=== PATIENT | female | born 1960 | race Caucasian/White ===

== ENCOUNTER 2021-05-01 15:36 | Outpatient (REF) | payer OTHER, SELFPAY ==
--- NOTE | ~2021-05-01 | CT_ITS ---
EXAMINATION: CT HEAD WITHOUT CONTRAST CLINICAL INFORMATION: Seizures. Migraine. COMPARISON: None TECHNIQUE: Contiguous axial imaging was performed from the skull base to vertex without intravenous administration of contrast. This CT examination was performed using dose optimization techniques as appropriate, variously including the following: *Automated exposure control *Adjustment of mA and/or kV according to patient size (this includes techniques or standardized protocols for targeted exams where dose is matched to indication/reason for exam; i.e. extremities or head) *Use of iterative reconstruction technique DLP: 784 mGy-cm FINDINGS: There is no evidence of acute intracranial hemorrhage or territorial infarction. No abnormal mass effect or midline shift is seen. Marie to white matter differentiation is well preserved. No extra-axial fluid collections are identified. The ventricles are normal in size. There is no abnormal attenuation within the brain parenchyma. The osseous structures and soft tissues are normal. The mastoid air cells and visualized portions of the paranasal sinuses are well aerated. CT/CT head/brain wo con IMPRESSION: Unremarkable exam.
== END 2021-05-01 15:37 | disposition home or self-care (01) ==
LOC: HO.CT 15:36
PROVIDERS: Visit Provider Psychiatry & Neurology Neurology
DX: G43.909 Migraine, unspecified, not intractable, without status migrainosus (principal); R56.9 Unspecified convulsions
CPT/HCPCS: 70450

== ENCOUNTER 2021-06-09 12:56 | Outpatient (REF) | payer OTHER, SELFPAY ==
--- NOTE | 2021-06-09 | EEG_ITS ---
The waking background activity consists of a well-defined moderate voltage 9 to 10 hertz posterior alpha frequency, intermixed anteriorly with beta frequencies. Intermittent bifrontal slowing is seen and a few episodes of sharp and slow discharges seen from the right posterior quadrants particularly on page 2532. Some brief bursts of sharp theta discharges seen predominantly over the T5 area on pages 8639 and 8688. Drowsiness is characterized by diffuse theta slowing. During sleep, symmetrical frontal central sleep spindles, and vertex sharp transients developed over both hemispheres. Arousals are unremarkable. Frequent muscle artifact from clenching and chewing are seen. No diary was returned. IMPRESSION: This 24-hour EEG is considered borderline abnormal due to occasional sharp transients from the right posterior quadrant and some sharp configuration theta from the left temporal region. This may suggest some element of localized cerebral irritability. None of these findings have developed well enough to be diagnostic for seizure disorder. The patient currently remained asymptomatic and did not return a diary. MD ERIN Barahona/MARII / [phone]
== END 2021-06-09 12:57 | disposition home or self-care (01) ==
LOC: HO.NEURO 12:56
PROVIDERS: Visit Provider Psychiatry & Neurology Neurology
DX: R56.9 Unspecified convulsions (principal)
CPT/HCPCS: 95708

== ENCOUNTER 2022-08-31 10:14 | Outpatient (REF) | payer OTHER, SELFPAY ==
--- NOTE | 2022-09-01 09:20 | MHC.AU.MED ---
Medical Clearance for Hearing Instrumentation Date: 08/31/22 Patient Name: Elvira Vazquez Date of : 1960 Primary Care Provider: MICHELLE Goff We have seen your patient on 08/31/22 and have determined that they are a candidate for amplification (See accompanying report). Specifically, they would benefit from: Hearing aid use in both ears There is a statute that addresses Medical Evaluation Requirements prior to fitting a patient with a hearing aid. According to [place] statute 265 CMR:6.03(1), (a) General. Except as provided in 265 CMR 6.03(1)(b), a hearing consultant shall not sell a hearing aid unless the prospective user has presented to the hearing consultant a written statement signed by a licensed physician that states that the patient's hearing loss has been medically evaluated and the patient may be considered a candidate for a hearing aid. The medical evaluation must have taken place within the preceding six months. Please note: Due to the [place] Statute referenced above, we cannot accept a signature other than that of a licensed physician. CONSUMER MARKETING SPECIALIST and PA signatures cannot be accepted. I am in agreement with the above recommendation. There is no medical contraindication for hearing instrumentation. Physician Signature Date Physician Name (Printed)
--- NOTE | 2022-09-01 11:18 | MHC.AU.HAS ---
Hearing Aid Evaluation Date of Visit: 08/31/22 Historical Information: Description of Hearing: Moderate to severe sensorineural hearing loss, bilaterally Current personal amplification information, if applicable: Reportedly previous hearing aids user fit at [facility] over 10 years ago described at [id number]-ear hearing aids, which have since been misplaced. Hearing Aid Prescription: Based on the individual?s shared listening needs, communication environments, dexterity, desire for connectivity, and personal preferences, the following prescription for amplification has been made: Right ear: Swimming Instructor: Phonak Model: Audeo P70-R Battery Size: Rechargeable Color: P6 - Silver Marie Supervisor Roller Printing: 1P Tubing: Type of Dome: Type of Mold: Acrylic c-shell with canal lock Left ear: Left ear prescription to be same as Right Hearing Aid above: Swimming Instructor: Phonak Model: Audeo P70-R Battery Size: Rechargeable Color: P6 - Silver marie Supervisor Roller Printing: 1P Tubing: Type of Dome: Type of Mold: Acrylic c-shell with canal lock Plan of Care: Patient wishes to purchase hearing aids as prescribed Action Taken/Action Needed: Earmold Impressions Taken Medical Clearance to be requested from PCP/ENT Hearing Instrument Fitting to be scheduled when materials arrive Primary Diagnosis: H90.3 Bilateral Sensorineural Hearing Loss Signature: Provider: Avinash Chow, [facility]
== END 2022-08-31 10:15 | disposition home or self-care (01) ==
LOC: HO.SH 10:14
PROVIDERS: Visit Provider Physician Assistant Medical
DX: Z01.118 Encounter for examination of ears and hearing with other abnormal findings (principal); H90.3 Sensorineural hearing loss, bilateral
CPT/HCPCS: 92557; 92591

== ENCOUNTER 2022-09-29 14:20 | Outpatient (REF) | payer OTHER, SELFPAY ==
--- NOTE | 2022-09-29 15:21 | MHC.AU.HFA ---
Hearing Instrument Fitting- Adult- Binaural Date of Visit: 09/29/22 Hearing Instruments Dispensed: Right Ear: Phonak Audeo P70-R SN: [id number] Color: Silver Marie Repair Warranty: 12/11/2025 Loss and Damage Warranty: 12/11/2025 Service Plan: 09/29/2023 Battery Size: Rechargeable Night Clerk: 1P Type of Mold: Acrylic c-shell with canal lock [id number] Warranty: 12/13/2022 Type of Wax Guard: CeruStop Left Ear: Phonak Audeo P70-R SN: [id number] Color: Silver Marie Repair Warranty: 12/11/2025 Loss and Damage Warranty: 12/11/2025 Service Plan: 09/29/2023 Battery Size: Rechargeable Night Clerk: 1P Type of Mold: Acrylic c-shell with canal lock SN: [id number] Warranty: 12/13/2022 Type of Wax Guard: CeruStop w/Cshell Summary of Fitting: Performed feedback material control manager and real ear measurements. Comfortable at real ear settings. Discussed care, use, and rechargeability, including changing wax guard, cleaning, and manually turning off/on. Elvira is reportedly a previous hearing aid user and is happy to have amplification again. Explained the importance of daily, consistent use and the acclimatization period. Did not pair to cell phone at this time. Recommendations: A hearing instrument follow-up was scheduled. Diagnosis Code(s): Primary Diagnosis: H90.3 Bilateral Sensorineural Hearing Loss Signature: Provider: Avinash Chow, [facility]
== END 2022-09-29 14:21 | disposition home or self-care (01) ==
LOC: HO.HAP 14:20
PROVIDERS: Visit Provider Physician Assistant Medical
DX: Z46.1 Encounter for fitting and adjustment of hearing aid (principal); H90.3 Sensorineural hearing loss, bilateral
CPT/HCPCS: V5011; V5020; V5160; V5261; V5264

== ENCOUNTER → 2023-04-06 10:15 | Outpatient (BNVA) | payer OTHER, SELFPAY | PROVIDERS: PCP Internal Medicine; Visit Provider Internal Medicine | DX: K62.5 Hemorrhage of anus and rectum (principal); R19.4 Change in bowel habit; R10.9 Unspecified abdominal pain; R13.10 Dysphagia, unspecified | CPT/HCPCS: 99202 ==

== ENCOUNTER 2023-05-18 11:02 | Outpatient (REF) | payer OTHER, SELFPAY ==
[2023-05-18 12:58] LABS: Hemoglobin 13.4 g/dl (12.0-16.0); Mean Corpuscular HGB Conc 35.3 g/dl (31.0-35.0); Mean Corpuscular Volume 102.2 fL (80.0-98.0); Mean Platelet Volume 9.6 fL (9.4-12.3); Platelet Count 231 X10*3/uL (160-400); Red Blood Count 3.72 X10*6/uL (4.20-5.50); Red Cell Distribution Width 13.8 % (11.0-16.0); White Blood Count 6.9 X10*3/uL (4.8-10.8)
[2023-05-18 14:32] LABS: Alanine Aminotransferase 22 U/L (0-31); Albumin Level 4.6 g/dL (3.5-5.0); Alkaline Phosphatase 155 U/L (39-117); Anion Gap 17 (12-20); Aspartate Amino Transferase 20 U/L (5-31); Bilirubin Total 0.3 mg/dL (0.0-1.0); Blood Urea Nitrogen 11 mg/dL (9-16); C Reactive Protein 2.08 mg/dL (< or = 0.50); Calcium 9.7 mg/dL (8.4-10.2); Carbon Dioxide 16 mmol/L (22-29); Chloride 107 mmol/L (96-108); Estimated Glomerular Filt Rate > 60; Glucose Random 175 mg/dL (60-115); Potassium 4.3 mmol/L (3.3-5.1); Sodium 136 mmol/L (135-145); Total Protein 7.6 g/dL (6.5-8.0)
[2023-05-18 14:35] LABS: TSH reflex Free T4 0.54 uIU/mL (0.32-4.0); Vitamin D 25-OH Total 16.7 ng/mL (>30)
[2023-05-20 18:53] LABS: Immunoglobulin A 71 mg/dL (70-320)
[2023-05-23 07:13] LABS: Transglutaminase IgA <1.0 U/mL
[2023-05-25 22:04] LABS: Calprotectin, Fecal 19 mcg/g
== END 2023-05-18 11:03 | disposition home or self-care (01) ==
LOC: HO.LAB 11:02
PROVIDERS: PCP Internal Medicine; Visit Provider Internal Medicine
DX: R19.4 Change in bowel habit (principal); K62.5 Hemorrhage of anus and rectum
CPT/HCPCS: 36415; 80053; 82306; 82784; 83993; 84443; 85027; 86140; 86364

== ENCOUNTER 2023-05-27 07:49 | Outpatient (REF) | payer OTHER, SELFPAY ==
--- NOTE | ~2023-05-27 | CT_ITS ---
EXAMINATION: CT ABDOMEN AND PELVIS WITH CONTRAST CLINICAL INFORMATION: Unspecified abdominal pain. COMPARISON: None available. TECHNIQUE: Multidetector volumetric images were obtained from the superior aspect of the liver through the pubic symphysis following administration 85 mL of Omnipaque 350 intravenous contrast. Sagittal and coronal reformatted images were obtained on the technologist's workstation. Oral contrast: No. This CT examination was performed using dose optimization techniques as appropriate, variously including the following: *Automated exposure control *Adjustment of mA and/or kV according to patient size (this includes techniques or standardized protocols for targeted exams where dose is matched to indication/reason for exam; i.e. extremities or head) *Use of iterative reconstruction technique DLP: 557 mGy-cm FINDINGS: LUNG BASES: The visualized lung bases are unremarkable. LIVER, GALLBLADDER, AND BILIARY TREE: The liver is normal in size, shape, and attenuation. No focal hepatic lesion or biliary ductal dilatation is present. The gallbladder is not visualized. PANCREAS: Unremarkable. SPLEEN: The spleen is unremarkable. Small accessory splenule at the hilum. ADRENAL GLANDS: Unremarkable. KIDNEYS AND URETERS: The kidneys are normal in size, shape, and attenuation. There is a 4 mm radiopaque calculi lower pole calyx left kidney. There is no caliectasis. No additional radiopaque calculi seen. No perinephric stranding. BLADDER: Unremarkable. GASTROINTESTINAL TRACT: There is scattered stool and gas seen throughout the colon without distention. The small bowel loops are normal caliber. There is a ring-shaped calcification along the posterolateral base of cecum measuring 1 cm. The appendix is not seen with certainty. The ileocecal junction is normal. The stomach is nondistended. ABDOMINAL WALL: No significant hernia is appreciated. LYMPH NODES: Normal. VASCULAR: Unremarkable. PELVIC VISCERA: Unremarkable. OSSEOUS STRUCTURES: No aggressive lytic or sclerotic process seen. There are degenerative disc changes with vacuum disc phenomena L4-L5 and L5-S1 disc levels. The paravertebral soft tissues are normal. CT/CT abdomen pelvis w IV con IMPRESSION: 1. No acute intra-abdominal process seen. 2. Nonobstructive 4 mm radiopaque calculi lower pole calyx left kidney. 3. Mild constipation. Ring-shaped calcification intramural along the base of the cecum, question previous appendectomy changes, less stagnant oral contrast in diverticuli. Fleischner guidelines were followed.
[2023-05-27] MEDS: iohexoL 350 MG/ML 100 ML INFUS..BTL IV (08:24)
== END 2023-05-27 07:50 | disposition home or self-care (01) ==
LOC: HO.CT 07:49
PROVIDERS: PCP Internal Medicine; Visit Provider Internal Medicine
DX: R10.9 Unspecified abdominal pain (principal)
CPT/HCPCS: 74177; Q9967

== ENCOUNTER 2023-06-14 10:10 | Outpatient (REF) | payer OTHER, SELFPAY ==
[2023-06-14 13:21] LABS: Blood Urea Nitrogen 10 mg/dL (9-16); Calcium 9.9 mg/dL (8.4-10.2); Estimated Glomerular Filt Rate > 60; Phosphorus 2.2 mg/dL (2.7-4.5)
[2023-06-14 13:48] LABS: Folate 5.1 ng/mL (> or = 4.0); Vitamin B12 410 pg/mL (200-900)
[2023-06-17 22:28] LABS: Calcium (PTHI) 10.2 mg/dL (8.6-10.4); PTHI 27 pg/mL (16-77)
[2023-06-23 05:28] LABS: Alk.Phos Iso. Macrohepatic 0 % (<=0); Alk.Phos Isoenzymes Bone 59 % (28-66); Alk.Phos Isoenzymes Intest 0 % (1-24); Alk.Phos Isoenzymes Liver 41 % (25-69); Alk.Phos Isoenzymes Placental 0 % (<=0); Alk.Phos Isoenzymes Total 126 U/L (37-153)
[2023-06-24 09:06] LABS: Phosphatidylethanol 16:0-18:1 NEGATIVE; Phosphatidylethanol 16:0-18:2 NEGATIVE
== END 2023-06-14 10:11 | disposition home or self-care (01) ==
LOC: HO.LAB 10:10
PROVIDERS: PCP Internal Medicine; Visit Provider Internal Medicine
DX: R10.9 Unspecified abdominal pain (principal); D53.9 Nutritional anemia, unspecified; R74.8 Abnormal levels of other serum enzymes; D75.89 Other specified diseases of blood and blood-forming organs; R13.10 Dysphagia, unspecified; K52.832 Lymphocytic colitis
CPT/HCPCS: 36415; 80321; 82310; 82565; 82607; 82746; 83970; 84080; 84100; 84520; 99212

== ENCOUNTER 2023-06-14 10:10 | Outpatient (AMB) | payer OTHER, SELFPAY ==
--- NOTE | 2023-06-14 10:18 | A.OFFVIS_ITS ---
Intake Vital Signs 06/14/23 10:20 Height 5 ft 1 in Weight 196 lb 3.382 oz BMI 37.1 Blood Pressure Location Lt brachial Position Sitting Intake Visit Reasons: f/u labs, CT scan Intake Note: Elvira presents in the office as a follow up to her CT scan and labs. CC: She states that she is having pains in her stomach and lower back. Every time she eats she will have contraction like feelings and nausea to the point where she can throw up. Geotechnical Engineer Required: No Allergies bee pollen [BEE STINGS] Allergy (Severe, Verified 06/14/23 10:20) Anaphylaxis lorazepam [From ATIVAN] Allergy (Severe, Verified 06/14/23 10:20) anaphylaxis, nausea penicillin V Allergy (Severe, Verified 06/14/23 10:20) anaphylaxis Sulfa (Sulfonamide Antibiotics) [SULFA (SULFONAMIDE ANTIBIOTICS)] Allergy (Severe, Verified 06/14/23 10:20) anaphylaxis, nausea ampicillin Allergy (Unknown, Verified 06/14/23 10:20) Swelling Penicillins [PCN] Allergy (Unknown, Verified 06/14/23 10:20) Rash gluten [GLUTEN] Adverse Reaction (Severe, Verified 06/14/23 10:20) Intolerance HPI HPI Comments History of Present Illness Details 62y.o F with PMH of SLE, C Diff, sensorineural hearing loss who is following up for lower abdominal pain and difficulty swallowin04/06/23: Pt reports that for the past few months she has been noticing increased lower abdominal pain which is more severe than labor pain anytime she has to defecate and when she does have a BM she notices hiren bright red blood. She has seen rectal bleeding even without passing a BM. Has also been noticing increasing frequency of diarrhea with this. Secondly, she has also been having difficulty swallowing joe solids. Has a sensation of food getting stuck mid chest. Appetite is unchanged. HAs not been losing any weight. Reports last EGD and colo done almost 2 years ago at [facility]. From her description appears had an esophageal dilation at that time. Reports a couple fo polyps in the colon but otherwise normal. 06/14/23: Records from [facility] (Dr Pierre) reviewed. Underwent EGD with dil - report N/A. Also had colonoscopy at the same time. x2 tubular adenoma and lymphocytic colitis on path. Reports continued chest pressure and cramping with certain textures of food. Thinks may need esophageal dilation again. Abd pain and diarrhea also persistent. Has not been taking any diarrheals for this. Has known hx of lymphocytic colitis but does not recall taking budesonide (although was Rxed x2 by previous GI provider). Labs and CT findings reveiwed with the pt and are reassuring. She was wondering about pancreatic cyst and was clarified that no panc cyst was noted on this scan or the previous scans. Had small fatty deposition/lipoma noted in pancreas in 2020. [facility] Medical History Abnormal breast tissue Anxiety Chronic gastritis Episodic tension-type headache Esophagitis Fibromyalgia Gastroesophageal reflux disease Immunoglobulin G deficiency Posttraumatic stress disorder Seizure Surgical History H/O left knee surgery History of cholecystectomy History of colonoscopy Hx of hysterectomy Family History Paternal Grandmother Leukemia Sister Cervical cancer Sister Uterine cancer Maternal Aunt Stomach cancer Paternal Aunt Breast cancer Social History Household Members: None Housing: Apartment Are you a primary patient care coordinator to a significant other at home: No Do you presently have visiting nurse or other home services: No Patient Tobacco Use Status: Former Tobacco user Tobacco use type: Cigarette service: No Current occupational status: disabled Review of Systems Const All systems reviewed & are unremarkable except as noted in HPI and below Physical Exam Vital Signs: BMI result Body Mass Index 37.1 Gen appear: NAD HEENT: nonicteric, no cervical lymphadenopathy Chest: CTA CVS: Regular S1/S2 Abd: soft, nontender, nondistended, bowel sounds + Rectal: Defered. (Prevous visit: Vesna Riddle MA present as optical effects layout person. Small ext hemorrhoids, small internal hemorrhoids, no stool or blood on gloved finger) Ext: no peripheral edema Neuro: A/Ox3, noted to move all extremities spontaneously Psych: interacting appropriately Assessment & Plan Assessment & Plan (1) Abdominal pain: Code(s): R10.9 - Unspecified abdominal pain (2) Dysphagia: Code(s): R13.10 - Dysphagia, unspecified (3) Lymphocytic colitis: Code(s): K52.832 - Lymphocytic colitis Plan 1. Dysphagia: Has hx of esophageal dilation. However since we do not have a copy of the procedure note, unclear if has stricture vs ring/web. Pt missed her barium swallow appt in April. Plan: - Obtain EGD note from [facility] - BArium swallow re-scheduled - EGD with dil 2. Lymphocytic colitis: Based on bx from 2020 and likely reason for ongoing watery diarrhea. Plan: - Trial of loperamide x 4 weeks - If minimal response, will Rx PO budesonide Follow up after EGD Orders: Orders Vitamin B12 and Folate Today D75.89 - Other specified diseases of blood and blood-forming organs Medications: New loperamide (Anti-Diarrheal (loperamide)) 2 mg orally in the AM and then after every loose stools to a max of 16mg/day PRN; 60 caps 0RF loose stool Coding Level of Care Code Est Pt Level 4 (92963) Diagnoses Abdominal pain R10.9 Dysphagia R13.10 Lymphocytic colitis K52.832
[2023-06-14 10:20] VITALS: BMI 37.1
== END 2023-06-14 11:44 | disposition home or self-care (01) ==
PROVIDERS: PCP Internal Medicine; Visit Provider Internal Medicine
DX: R10.9 Unspecified abdominal pain (principal); R13.10 Dysphagia, unspecified; K52.832 Lymphocytic colitis
CPT/HCPCS: 99214

== ENCOUNTER 2023-06-30 09:11 | Outpatient (REF) | payer OTHER, SELFPAY ==
--- NOTE | ~2023-06-30 | FL_ITS ---
EXAMINATION: FL BARIUM SWALLOW CLINICAL INFORMATION: 62-year-old female complaining of episodic dysphasia, globus sensation, GERD. COMPARISON: No relevant prior available for comparison. TECHNIQUE: Barium swallow examination is performed using standard air-contrast technique fluoroscopic evaluation in addition to multiple fluoroscopic spot views. The patient is imaged both upright and prone and using both thick and thin sulfate along with effervescent granules. Fluoroscopy time: 3.1 minutes minutes DAP: 44.568 Gycm2 Images: 37 FINDINGS: On the sagittal images of the oropharynx and hypopharynx during swallow, normal oral and hypopharyngeal phases of swallowing noted with no evidence of cricopharyngeal achalasia, diverticulum, mass, or significant vallecular or piriform sinus pooling. Minimal transient laryngeal penetration was noted without gross aspiration, which cleared subsequently. Normal epiglottic movement and soft palate elevation. The esophagus has a normal caliber, and contour. No evidence of stricture, mass, or mucosal abnormality. Esophageal primary peristalsis was normal, however there was mild tertiary contractions which were minimally propulsive and mildly disordered. Episodic gastroesophageal reflux was noted to the level of the aortic arch. A small type I hiatus hernia was present, best seen on series 3, image 13. The stomach has a normal contour and fold pattern. No ulcerations, masses, or other abnormalities. The duodenal bulb, proximal duodenum, and imaged proximal small bowel appear normal. FL/FL barium swallow IMPRESSION: 1. Transient laryngeal penetration of thick barium only noted on one swallow. No gross subglottic aspiration evident. 2. Normal esophagus without stricture, mass, or mucosal abnormality. Mild presbyesophagus. 3. Episodic gastroesophageal reflux to the level of the aortic arch. 4. Small type I hiatus hernia. 5. Normal stomach, duodenal bulb, duodenal sweep, and proximal small bowel.
== END 2023-06-30 09:12 | disposition home or self-care (01) ==
LOC: HO.XRAY 09:11
PROVIDERS: PCP Internal Medicine; Visit Provider Internal Medicine
DX: R13.10 Dysphagia, unspecified (principal)
CPT/HCPCS: 74220; 74221

== ENCOUNTER → 2023-06-30 09:12 | Outpatient (BNV) | payer OTHER, SELFPAY | PROVIDERS: PCP Internal Medicine; Visit Provider Radiology Diagnostic Radiology | DX: K21.9 Gastro-esophageal reflux disease without esophagitis (principal) | CPT/HCPCS: 74221 ==

== ENCOUNTER 2025-03-13 15:16 | Outpatient (AMB) | payer OTHER, SELFPAY ==
--- NOTE | 2025-03-13 15:24 | MHC.OFFVIS ---
Vital Signs 03/13/25 15:25 Height 5 ft 1 in Weight 182 lb 15.739 oz BMI 34.6 BP 109/58 L Blood Pressure Location Lt brachial Position Sitting Pulse 90 Intake Visit Reasons: abd pain, rectal bleeding, colitis Intake Note: Elvira presents in the office as a follow up. CC: States she has been bleeding non stop since august. She wears pads and bleeds through them. Rectum comes out she states and it is very painful with blood clots. Flight Communications Officer Required: No Allergies bee pollen [BEE STINGS] Allergy (Severe, Verified 03/13/25 15:18) Anaphylaxis lorazepam [From ATIVAN] Allergy (Severe, Verified 03/13/25 15:18) anaphylaxis, nausea penicillin V Allergy (Severe, Verified 03/13/25 15:18) anaphylaxis Sulfa (Sulfonamide Antibiotics) [SULFA (SULFONAMIDE ANTIBIOTICS)] Allergy (Severe, Verified 03/13/25 15:18) anaphylaxis, nausea ampicillin Allergy (Unknown, Verified 03/13/25 15:18) Swelling Penicillins [PCN] Allergy (Unknown, Verified 03/13/25 15:18) Rash gluten [GLUTEN] Adverse Reaction (Severe, Verified 03/13/25 15:18) Intolerance HPI Comments Details: 62y.o F with PMH of SLE, C Diff, sensorineural hearing loss who is following up for lower abdominal pain and difficulty swallowin04/06/23: Pt reports that for the past few months she has been noticing increased lower abdominal pain which is more severe than labor pain anytime she has to defecate and when she does have a BM she notices hiren bright red blood. She has seen rectal bleeding even without passing a BM. Has also been noticing increasing frequency of diarrhea with this. Secondly, she has also been having difficulty swallowing joe solids. Has a sensation of food getting stuck mid chest. Appetite is unchanged. HAs not been losing any weight. Reports last EGD and colo done almost 2 years ago at [place]. From her description appears had an esophageal dilation at that time. Reports a couple fo polyps in the colon but otherwise normal. 06/14/23: Records from [facility] GI (Dr Pierre) reviewed. Underwent EGD with dil - report N/A. Also had colonoscopy at the same time. x2 tubular adenoma and lymphocytic colitis on path. Reports continued chest pressure and cramping with certain textures of food. Thinks may need esophageal dilation again. Abd pain and diarrhea also persistent. Has not been taking any diarrheals for this. Has known hx of lymphocytic colitis but does not recall taking budesonide (although was Rxed x2 by previous GI provider). Labs and CT findings reveiwed with the pt and are reassuring. She was wondering about pancreatic cyst and was clarified that no panc cyst was noted on this scan or the previous scans. Had small fatty deposition/lipoma noted in pancreas in 2020. 03/13/25: Pt was lost to follow up. Now returning primarily for intermittent rectal bleeding x 5 months. Symptoms started in august when she noticed blood after defecation. Blood ranges from a streak on TP to clots. No abd pain, cramping, chest pain or shortness of breath. 02/06/25 labs: WBC 8 Hb 14.6 Hct 41.4 plt 179 iron 85 iron sat 25% In the interim also reports multiple bulbous lesions on her hands and face and is being worked up for bullous pemphigoid. Pt also reports Cdiff infection x 3 which was treated as outpatient but no sx of abd pain or diarrhea at present. [facility] Medical History Abnormal breast tissue Anxiety Chronic gastritis Episodic tension-type headache Esophagitis Fibromyalgia Gastroesophageal reflux disease Immunoglobulin G deficiency Posttraumatic stress disorder Seizure Surgical History H/O left knee surgery History of cholecystectomy History of colonoscopy Hx of hysterectomy Family History Paternal Grandmother Leukemia Sister Cervical cancer Sister Uterine cancer Maternal Aunt Stomach cancer Paternal Aunt Breast cancer Social History Household Members: None Housing: Apartment Are you a primary post acute care registered nurse to a significant other at home: No Do you presently have visiting nurse or other home services: No Patient Tobacco Use Status: Former Tobacco user Tobacco use type: Cigarette service: No Current occupational status: disabled Physical Exam Vital Signs: Last Vital Signs Pulse 90 03/13/25 15:25 BP 109/58 L 03/13/25 15:25 BMI result Body Mass Index 34.6 No apparent distress Nonicteric, nose abrasion Abdomen soft, nondistended rectal exam: external hemorrhoids, internal hemorrhoids on digital exam. no blood on gloved finger Alert and oriented x3, normal gait Assessment & Plan Assessment & Plan (1) Abdominal pain: Code(s): R10.9 - Unspecified abdominal pain Category: Medical (2) Change in bowel habit: Code(s): R19.4 - Change in bowel habit Category: Medical (3) Bright red rectal bleeding: Code(s): K62.5 - Hemorrhage of anus and rectum Category: Medical (4) Bullous pemphigoid: Code(s): L12.0 - Bullous pemphigoid Category: Medical (5) Hemorrhoids: Code(s): K64.9 - Unspecified hemorrhoids Category: Medical Plan - rectal bleeding likely 2/2 hemorroidal bleeding. Blood work reassuring that bleeding is small amount. Plan: - Avoid constipation and straining. Can take OTC senna or miralax to manage constipation. - avoid lifting heavy weights - increase hydration and fiber intake - topical hydrocort x 10-14 days - colo will be booked however pt had previously reported active cardiac issues (see portal msg dec 2024) so will need cardiology note to ensure ok to proceed. Follow up after colo Medications: New hydrocortisone 2.5% (Anusol-HC) apply at night time. 1 appl UT BEDTIME 10 days PRN 30 grams 0RF hemorrhoids peg 3350-electrolytes 236-22.74-6.74 -5.86 gram (Golytely) as per split prep instructions, until fecal effluent is clear 240 mL PO Q10M 4,000 mL 0RF colonoscopy psyllium husk 3 grams PO BID 90 days 540 grams 0RF Coding Level of Care Code Est Pt Level 4 (56866) Diagnoses Abdominal pain R10.9 Change in bowel habit R19.4 Bright red rectal bleeding K62.5 Bullous pemphigoid L12.0 Hemorrhoids K64.9
[2025-03-13 15:25] VITALS: BP 109/58; PULSE 90; BMI 34.6
== END 2025-03-13 16:06 | disposition home or self-care (01) ==
LOC: HO.HGI 15:16
PROVIDERS: PCP Internal Medicine; Visit Provider Internal Medicine
DX: R10.9 Unspecified abdominal pain (principal); R19.4 Change in bowel habit; K62.5 Hemorrhage of anus and rectum; L12.0 Bullous pemphigoid; K64.9 Unspecified hemorrhoids
CPT/HCPCS: 99214

== ENCOUNTER → 2025-03-13 15:16 | Outpatient (BNVA) | payer OTHER, SELFPAY | PROVIDERS: PCP Internal Medicine; Visit Provider Internal Medicine | DX: K62.5 Hemorrhage of anus and rectum (principal); K64.9 Unspecified hemorrhoids; R10.9 Unspecified abdominal pain; R19.4 Change in bowel habit; L12.0 Bullous pemphigoid | CPT/HCPCS: 99212 ==